=== PATIENT | female | born 1955 ===

== ENCOUNTER 2024-05-19 11:43 | Emergency (ER) | payer MEDICARE ==
[~2024-05-19] VITALS: Ht 160 cm; Wt 68.0 kg
[2024-05-19 11:47] VITALS: TEMP 98.2
[2024-05-19] MEDS ORDERED: LOSA-382 PO (11:52)
[2024-05-19] MEDS: METOCLOPRAMIDE HCL 10 MG TABLET PO ONE (13:09)
[2024-05-19] MEDS: IBUPROFEN 600 MG TABLET PO ONE (13:10)
[2024-05-19] MEDS: ACETAMINOPHEN 325 MG TABLET PO ONE (13:10)
[2024-05-19 13:27] VITALS: BP 145/79; PULSE 60; RESP 18; O2SAT 100
== END 2024-05-19 13:54 | disposition home or self-care (01) ==
LOC: EMS 11:43
DX: I10 Essential (primary) hypertension (principal); R51.9 Headache, unspecified; E11.9 Type 2 diabetes mellitus without complications
CPT/HCPCS: 82962; 99284